=== PATIENT | male | born 1990 | race Caucasian/White ===

== ENCOUNTER 2023-10-16 15:03 | Emergency (ER) | payer OTHER, SELFPAY ==
[2023-10-16 15:06] VITALS: BP 178/82; PULSE 102; RESP 17; TEMP 36.6; O2SAT 98; BMI 34.0
--- NOTE | 2023-10-16 16:22 | W.ED.PSYCHS ---
HPI - Psych General: Chief Complaint: Psychiatric Symptoms Stated Complaint: MHE Time Seen by Provider: 10/16/23 16:16 History of Present Illness: 33-year-old man with a history of schizophrenia and bipolar disorder who presents the emergency room with a manic episode. It is unclear exactly what he wants. He says he moved down here and did not come with all of his medications. He still takes his nighttime medication. He adamantly denies any homicidal or suicidal ideations. He says he needs to start back on his medications because the people he lives with will not put up with him until he does. We have provided him with information for the crisis center and he says he has a therapist somewhere here in town and will follow-up with them tomorrow. He agrees to injections today to help calm him down. Review of Systems Narrative: Constitutional symptoms: Negative except as documented in HPI. Skin symptoms: Negative except as documented in HPI. Eye symptoms: Negative except as documented in HPI. ENMT symptoms: Negative except as documented in HPI. Respiratory symptoms: Negative except as documented in HPI. Cardiovascular symptoms: Negative except as documented in HPI. Gastrointestinal symptoms: Negative except as documented in HPI. Genitourinary symptoms: Negative except as documented in HPI. Musculoskeletal symptoms: Negative except as documented in HPI. Neurologic symptoms: Negative except as documented in HPI. Psychiatric symptoms: Negative except as documented in HPI. Endocrine symptoms: Negative except as documented in HPI. Physical Exam Narrative: EXAM NARRATIVE: General: Alert, no acute distress. Skin: warm and dry Head: Normocephalic Neck: Trachea midline Eye: Extraocular movements are intact. Ears, nose, mouth and throat: Oral mucosa moist Respiratory: Respirations are non-labored Musculoskeletal: Normal ROM Neurological: Alert and oriented, No focal neurological deficit observed. Psychiatric: Patient is fairly agitated. Pressured speech. Flight of ideas. He is adamant that he has no suicidal or homicidal ideations and that he just needs medications. Course Vital Signs: Vital signs: Vital Signs Temperature 97.9 F 10/16/23 15:06 Pulse Rate 102 H 10/16/23 15:06 Respiratory Rate 17 10/16/23 15:06 Blood Pressure 178/82 10/16/23 15:06 Pulse Oximetry 98 10/16/23 15:06 Oxygen Delivery Me thod Room Air 10/16/23 15:06 [facility] - Psych Medical Decision Making Assessment and plan: Manic episode medical noncompliance -IM Kashdon and Atcathryn. - Discharged home - Discussed plan with patient. Answered any questions. - Evaluation and treatment of this problem were appropriate in the emergency setting. All radiology interpretation(s) finalized by discharge Discharge Plan Discharge Patient Disposition: Home Clinical Impression: Chronic schizophrenia, Manic episode Condition: Stable Discharge Orders: Discharge ED (Routine); Ordered 10/16/23 Ordered By: Cherrie Posadas Discharge Diet: Usual diet Discharge Activity: Resume usual activity Patient Instructions: Mood Disorders (ED) Activity Restrictions/Additional Instructions: Please follow-up with the crisis center tomorrow if you continue to have symptoms. If you develop any suicidal or homicidal ideations please return to the emergency room immediately. Thank you for choosing [facility] for your healthcare needs today. Please realize this is an emergency room and that we are providing you with a medical screening exam and this may not be complete and all inclusive of all the testing and or work up that you may need to determine your ailment or severity of your illness. You have been screened and evaluated and felt safe for discharge. Health conditions do change or evolve sometimes and as such it is important that you follow up with your Primary Doctor to be re checked, 3-5 days is a general good time frame for follow up. You are always welcome to return to the ED for re assessment if your symptoms are worsening or you have new concerns Coding Level of Care Code ED Supervisor Paste Mixing for Alfreda Herron
[2023-10-16] MEDS: LORazepam 2 mg/mL INJ 10 mL MDV IM (16:33)
[2023-10-16] MEDS: ziprasidone 20 mg/mL SDV IM (16:34)
== END 2023-10-16 16:41 | disposition home or self-care (01) ==
PROVIDERS: Emergency Provider Emergency Medicine
DX: F20.9 Schizophrenia, unspecified (principal); F30.9 Manic episode, unspecified
CPT/HCPCS: 96372; 99284; J2060; J3486

== ENCOUNTER 2023-12-06 14:59 | Inpatient (IN) | payer OTHER, SELFPAY ==
[2023-12-06 15:09] VITALS: BP 137/90; PULSE 104; RESP 20; TEMP 36.8; O2SAT 95
--- NOTE | 2023-12-06 15:19 | ED.C_ITS ---
HPI - Psych 2 General: Chief Complaint: Psychiatric Symptoms Stated Complaint: SI and HI Time Seen by Provider: 12/06/23 15:02 Source: patient Mode of arrival: ambulatory Limitations: no limitations History of Present Illness: 33-year-old male states that he has been having mental anguish and he states severe depression along with anger and homicidal thoughts. He states that he sees a PCP but does not feel like his meds are working he states that he wants to be admitted to get help because he states that he does not feel mentally stable at this time he denies being SI but states he does have severe depression. Associated symptoms: Reports depression and homicidal ideation Review of Systems 2 Const: Denies: fever(s), chills, body aches or change in appetite ENMT: Denies: throat pain or dental pain Card: Denies: chest pain Resp: Denies: dyspnea GI: Denies: abdominal pain, nausea, vomiting or diarrhea : Denies: dysuria Musc: Denies: neck pain or back pain Skin/Breast: Denies: rash Neuro: Denies: headache(s) Psych: Reports: depression and homicidal ideation Physical Exam 2 Const: COMMON NORMALS: no acute distress, patient oriented x3 and healthy appearing HENMT: COMMON NORMALS: normocephalic and atraumatic HEAD & SCALP: n ormocephalic and atraumatic Neck/C-Spine: COMMON NORMALS: full ROM and supple Chest: COMMONS NORMALS: normal inspection of the chest Resp: COMMON NORMALS: normal respiratory effort Cardio: COMMON NORMALS: regular rate, regular rhythm and No murmurs present (Cardio) RATE: regular rate RHYTHM: regular rhythm Extremity: COMMON NORMALS: normal to inspection and full ROM Neuro: COMMON NORMALS: patient oriented x3, moves all extremities and no focal motor deficits Psych: COMMON NORMALS: mental status grossly normal, Normal thought process present and cooperative MOOD & AFFECT: Yes depressed mood THOUGHT PROCESS: Normal thought process present THOUGHT CONTENT: Yes Homicidality present Skin: COMMON NORMALS: no rashes or lesions noted and no wounds GENERAL SKIN EXAM: no rashes or lesions noted Course 2 Vital Signs: Vital signs: Vital Signs Temperature 98.3 F 12/06/23 15:09 Pulse Rate 104 H 12/06/23 15:09 Respiratory Rate 20 H 12/06/23 15:09 Blood Pressure 137/90 12/06/23 15:09 Pulse Oximetry 95 12/06/23 15:09 Oxygen Delivery Me thod Room Air 12/06/23 15:09 MDM - Psych Medical Decision Making Patient presents here with depression along with homicidal ideation he is voluntarily wanting to be admitted he is medically cleared I spoke to psychiatrist will admit at this time. Medical Records I reviewed the patient's medical records. Lab Data I reviewed the patient's lab results. 12/06/23 15:20 12/06/23 15:20 Laboratory Results WBC 9.02 10^3/uL (3.29-11.43) 12/06/23 15:20 RBC 4.64 10^6/uL (3.85-5.65) 12/06/23 15:20 Hgb 14.30 g/dL (11.27-16.99) 12/06/23 15:20 Hct 42.1 % (37-53) 12/06/23 15:20 MCV 90.7 fl (82-101) 12/06/23 15:20 MCH 30.8 pg (27-33) 12/06/23 15:20 MCHC 34.0 g/dL (30-55) 12/06/23 15:20 RDW 12.8 % (12.1-15.1) 12/06/23 15:20 Plt Count 298 10^3/cmm (157-399) 12/06/23 15:20 MPV 9.7 fL (7.4-10.4) 12/06/23 15:20 Neut % (Auto) 55.6 % 12/06/23 15:20 Lymph % (Auto) 33.4 % 12/06/23 15:20 [place] % (Auto) 6.8 % 12/06/23 15:20 Eos % (Auto) 3.3 % 12/06/23 15:20 Baso % (Auto) 0.6 % 12/06/23 15:20 Neut # (Auto) 5.02 10^3/uL (1.8-7.7) 12/06/23 15:20 Lymph # (Auto) 3.0 10^3/uL (0.8-4.8) 12/06/23 15:20 [place] # (Auto) 0.6 10^3/uL (0.2-0.9) 12/06/23 15:20 Eos # (Auto) 0.3 10^3/uL (0.0-0.8) 12/06/23 15:20 Baso # (Auto) 0.1 10^3/uL (0.0-0.1) 12/06/23 15:20 Nucleated RBC % (auto) 0 % 12/06/23 15:20 Nucleated RBCs # 0.0 /100WBC 12/06/23 15:20 No radiology studies performed this visit Discharge Plan Discharge Patient Disposition: Admitted As Inpatient Clinical Impression: Depression, Homicidal ideation Condition: Stable Coding Level of Care Code ED Test Fixture Assembler for Alfreda Herron
[2023-12-06 15:26] LABS: Basophils # 0.1 10^3/uL (0.0-0.1); Basophils % 0.6 %; Eosinophils # 0.3 10^3/uL (0.0-0.8); Eosinophils % 3.3 %; Hematocrit 42.1 % (37-53); Lymphocytes % 33.4 %; Mean Corpuscular Hemoglobin 30.8 pg (27-33); Mean Corpuscular Volume 90.7 fl (82-101); Mean Platelet Volume 9.7 fL (7.4-10.4); Monocytes # 0.6 10^3/uL (0.2-0.9); Monocytes % 6.8 %; Neutrophils # 5.02 10^3/uL (1.8-7.7); Neutrophils % 55.6 %; Nucleated Red Blood Cells % 0 %; Platelet Count 298 10^3/cmm (157-399); Red Blood Count 4.64 10^6/uL (3.85-5.65); Red Cell Distribution Width 12.8 % (12.1-15.1); White Blood Count 9.02 10^3/uL (3.29-11.43)
[2023-12-06 15:50] LABS: Alanine Aminotransferase 212 U/L (0-41); Albumin Level 4.1 g/dL (3.5-5.2); Alkaline Phosphatase 144 U/L (40-130); Anion Gap 18.7 (5-19); Aspartate Amino Transferase 128 U/L (0-40); Blood Urea Nitrogen 13 mg/dL (6-20); Calcium 9.1 mg/dL (8.5-10.5); Carbon Dioxide 23 mmol/L (22-29); Chloride 96 mmol/L (98-107); Creatinine Clr Calc Pharmacy 168.8888; Globulin 3.2 g/dL (1.3-4.6); Glomerular Filtration Rate 96.6 mL/min (90-130); Glucose 152 mg/dL (65-115); Osmolality Calculated 281 mOsm/kg (285-295); Potassium 3.7 mmol/L (3.5-5.1); Sodium 134 mmol/L (136-145); Total Bilirubin 0.2 mg/dL (0.15-1.2); Total Protein 7.3 g/dL (6.6-8.7)
[2023-12-06 15:55] LABS: Acetaminophen < 5.0 ug/mL (10-30); Alcohol Level < 10 mg/dL (0-10); Salicylate < 0.3 mg/dL (3-10)
[2023-12-06 16:18] LABS: Amphetamines Screen Urine Negative (Negative); Barbiturates Screen Urine Negative (Negative); Benzodiazepines Screen Urine Negative (Negative); Cocaine Screen Urine Negative (Negative); Opiate Screen Urine Negative (Negative); PCP Screen Urine Negative (Negative); THC Screen Urine Positive (Negative)
[2023-12-06 17:15] VITALS: BP 145/92; PULSE 103; RESP 18; TEMP 36.4; O2SAT 94
[2023-12-06] MEDS: nicotine 2 mg Gum BUCCAL (17:50)
[2023-12-06] MEDS: ibuprofen 600 mg Tablet PO (18:27)
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
[2023-12-06] MEDS: trazodone 50 mg Tablet PO (20:48)
[2023-12-06 22:00] VITALS: BP 147/94; PULSE 102; RESP 17; TEMP 36.5; O2SAT 95
[2023-12-07 06:00] VITALS: BP 144/87; PULSE 83; RESP 15; TEMP 36.5; O2SAT 97
[2023-12-07] MEDS: acetaminophen 325 mg Tablet 650 MG PO (08:55)
[2023-12-07] MEDS: nicotine 2 mg Gum BUCCAL ×2 (08:59→11:21)
[2023-12-07] MEDS: hyDROXYzine 25 mg Capsule 50 MG PO (11:21)
--- NOTE | 2023-12-07 11:33 | PC.NURSE ---
pt continues to pace up and down hallway. stopping at nurses desk stating he doesn't want to be here. He can just take his medication like he has it an just wait until he can be set up with a behavioral health care provider. states he has been institutionalized most of his life and does not feel safe in here. That [place] you could go to an facility and get your medication adjusted and then leave you did not have to stay there. pt agrees to speak with the doctor when he is available and they decide what is best for him. then the next minute after walking away from nurses station pt comes back up stating he wants to leave and he is not doing well being institutionalized.
--- NOTE | 2023-12-07 13:07 | PC.NURSE ---
pt left AMA Doctor notified, pt here voluntarily. pt belonging returned to pt.
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
== END 2023-12-07 13:01 | disposition left against medical advice (07) | DRG 885 ==
LOC: ER 15:36 → NP 16:34
PROVIDERS: Physician Assistant; Admitting Provider Psychiatry & Neurology Psychiatry; Emergency Provider Emergency Medicine; Visit Provider Psychiatry & Neurology Psychiatry
DX: F25.0 Schizoaffective disorder, bipolar type (principal); F15.90 Other stimulant use, unspecified, uncomplicated; F90.9 Attention-deficit hyperactivity disorder, unspecified type; Z53.29 Procedure and treatment not carried out because of patient's decision for other reasons
CPT/HCPCS: 36415; 80053; 80306; 80307; 85025; 99285